=== PATIENT | male | born 1970 | race Caucasian/White ===

== ENCOUNTER 2023-02-18 11:38 | Day surgery (SDC) | payer BC ==
[2023-02-12 11:57] VITALS: BMI 37.3
[2023-02-18] MEDS ORDERED: PROPOFOL 40 ML ONE (12:10)
[2023-02-18] MEDS ORDERED: Midazolam HCl 2 mg/2 ml Vial ONE (12:25)
[2023-02-18] MEDS ORDERED: PROPOFOL 20 ML ONE (13:21)
[2023-02-18] MEDS ORDERED: PHENYLEPHRINE-NS 100 MCG/ML 10 ML SYRINGE ONE (13:25)
== END 2023-02-18 14:15 | disposition home or self-care (01) ==
LOC: CSHSDC 11:38
PROVIDERS: ATTEND Internal Medicine Gastroenterology
PROC: 0DBL8ZZ Excision of Transverse Colon, Via Natural or Artificial Opening Endoscopic (ICD-10-PCS; principal; 2023-02-18)
DX: Z12.11 Encounter for screening for malignant neoplasm of colon (principal); D12.3 Benign neoplasm of transverse colon; K64.8 Other hemorrhoids; K52.9 Noninfective gastroenteritis and colitis, unspecified; E11.9 Type 2 diabetes mellitus without complications; I48.91 Unspecified atrial fibrillation; E66.9 Obesity, unspecified; Z68.37 Body mass index [BMI] 37.0-37.9, adult; Z88.1 Allergy status to other antibiotic agents
CPT/HCPCS: 88305; J2250; J2704